=== PATIENT | male | born 1990 | race African-American/Black ===

== ENCOUNTER 2017-09-10 07:59 | Emergency (ER) | payer SELFPAY ==
[~2017-09-10] VITALS: Ht 180.3 cm; Wt 66.0 kg
[2017-09-10 08:00] VITALS: BP 125/67; PULSE 74; RESP 16; TEMP 98.6; O2SAT 100
[2017-09-10] MEDS ORDERED: SODIUM CHLORIDE 0.9% FLUSH 10 ML FLUSH IV FLUSH PRN (08:45)
[2017-09-10 08:56] LABS: AUTOMATED NEUTROPHIL # 6.3 TH/MM3 (1.8-7.7); BASOPHIL % 0.3 % (0.0-2.0); HEMATOCRIT 44.7 % (39.0-51.0); HEMO FLAGS DIFF FINAL; LYMPHOCYTE # 0.4 TH/MM3 (1.0-4.8); MEAN CELL VOLUME 84.5 FL (80.0-100.0); MEAN CORPUSCULAR HEMOGLOBIN 28.8 PG (27.0-34.0); MEAN CORPUSCULAR HGB CONC 34.1 % (32.0-36.0); NEUT % 87.7 % (16.0-70.0); PLATELET COUNT 185 TH/MM3 (150-450); RED BLOOD COUNT 5.29 MIL/MM3 (4.50-5.90); RED CELL DISTRIBUTION WIDTH 13.8 % (11.6-17.2); WHITE BLOOD COUNT 7.2 TH/MM3 (4.0-11.0)
[2017-09-10 08:59] LABS: BLOOD, URINE NEG (NEG); COMMENT (UR) CULT NOT INDICATED; CULTURE IF INDICATED CULT NOT INDICATED; GLUCOSE,URINE TRACE mg/dL (NEG); KETONE, URINE 10 mg/dL (NEG); MUCUS URINE FEW /lpf (OCC); NITRITE,URINE NEG (NEG); SQUAMOUS EPITHELIAL CELL URINE <1 /hpf (0-5); URINE COLOR YELLOW (YELLW/STRAW)
[2017-09-10] MEDS ORDERED: ONDANSETRON HCL 4 MG/2 ML VIAL IV PUSH ONE (09:00)
[2017-09-10] MEDS ORDERED: SODIUM CHLOR 0.9% 1000 ML INJ 1,000 ML IV ONE (09:00)
[2017-09-10] MEDS ORDERED: DICYCLOMINE HCL 10 MG CAP PO ONE (09:00)
[2017-09-10 09:24] LABS: ANION GAP 6 MEQ/L (5-15); AST (GOT) 26 U/L (15-37); BICARBONATE 24.3 MEQ/L (21.0-32.0); BLOOD UREA NITROGEN 10 MG/DL (7-18); CHLORIDE 104 MEQ/L (98-107); GLOMERULAR FILTRATION RATE 139 ML/MIN (>89); POTASSIUM 3.8 MEQ/L (3.5-5.1); SODIUM (NA) 134 MEQ/L (136-145)
[2017-09-10 09:28] LABS: ALKALINE PHOSPHATASE 57 U/L (45-117); ALT (GPT) 22 U/L (12-78); TOTAL BILIRUBIN ADULT 0.4 MG/DL (0.2-1.0)
[2017-09-10] MEDS ORDERED: NAPROXEN 500 MG TAB PO ONE (11:15)
[2017-09-10] MEDS ORDERED: DICY10 PO (11:30)
[2017-09-10] MEDS ORDERED: LOPE2CAP PO (11:30)
[2017-09-10] MEDS ORDERED: ZOFR4TAB3 SL (11:30)
--- NOTE | 2017-09-10 11:30 | PD ---
HPI Chief Complaint: GI Complaint Time Seen by Provider: 08:57 Travel History International Travel<30 days: No Contact w/Intl Traveler<30days: No Traveled to known affect area: No History of Present Illness HPI Is a 27-year-old man who presents to the emergency department complaining of lower abdominal discomfort. He reports that started yesterday. Service and nausea and vomiting progressed to low back pain and lower abdominal pain. He's had loose watery stools as well. He's been nauseous today without as much vomiting. He's had some subjective chills as well. No history of abdominal surgery. He otherwise has been feeling generally well. History Past Medical History Medical History: Denies Significant Hx Past Surgical History Surgical History: No Previous Surgery Social History Alcohol Use: No Tobacco Use: No Allergies-Medications (Allergen,Severity, Reaction): Coded Allergies: No Known Allergies (Unverified , 09/10/17) Reported Meds & Prescriptions Reported Meds & Active Scripts Active Loperamide (Loperamide HCl) 2 Mg Cap 2 Mg PO DIRECTED PRN One capsule after each loose stool. Not to exceed 8 capsules per day. Bentyl (Dicyclomine HCl) 10 Mg Cap 10 Mg PO TID PRN Zofran Odt (Ondansetron Odt) 4 Mg Tab 4 Mg SL Q6HR PRN Review of Systems Except as stated in HPI: all other systems reviewed are Neg Physical Exam Narrative GENERAL: Well-appearing urine 27-year-old man, no acute distress. SKIN: Focused skin assessment warm/dry. HEAD: Atraumatic. Normocephalic. EYES: Pupils equal and round. No scleral icterus. No injection or drainage. ENT: No nasal bleeding or discharge. Mucous membranes pink and moist. NECK: Trachea midline. No JVD. CARDIOVASCULAR: Regular rate and rhythm. No murmur appreciated. RESPIRATORY: No accessory muscle use. Clear to auscultation. Breath sounds equal bilaterally. GASTROINTESTINAL: Abdomen is flat and soft. Some mild lower abdominal tenderness bilaterally. No rebound or guarding. MUSCULOSKELETAL: No obvious deformities. No clubbing. No cyanosis. No edema. NEUROLOGICAL: Awake and alert. No obvious cranial nerve deficits. Motor grossly within normal limits. Normal speech. PSYCHIATRIC: Appropriate mood and affect; insight and judgment normal. Data Data Last Documented VS Vital Signs Date Time Temp Pulse Resp B/P (MAP) Pulse Ox O2 Delivery O2 Flow Rate FiO2 09/10/17 08:00 98.6 74 16 125/67 (86) 100 Room Air Orders Orders Complete Blood Count With Diff (09/10/17 08:42) Comprehensive Metabolic Panel (09/10/17 08:42) Lipase (09/10/17 08:42) Urinalysis - C+S If Indicated (09/10/17 08:42) Iv Access Insert/Monitor (09/10/17 08:42) Sodium Chloride 0.9% Flush (Ns Flush) (09/10/17 08:45) Ondansetron Inj (Zofran Inj) (09/10/17 09:00) Sodium Chlor 0.9% 1000 Ml Inj (Ns 1000 M (09/10/17 09:00) Dicyclomine (Bentyl) (09/10/17 09:00) Naproxen (Naprosyn) (09/10/17 11:15) Ed Discharge Order (09/10/17 11:30) Labs Laboratory Tests Test 09/10/17 08:30 09/10/17 08:35 Urine Color YELLOW Urine Turbidity CLEAR Urine pH 6.0 Urine Specific [place] 1.022 Urine Protein 30 mg/dL Urine Glucose (UA) TRACE mg/dL Urine Ketones 10 mg/dL Urine Occult Blood NEG Urine Nitrite NEG Urine Bilirubin NEG Urine Urobilinogen LESS THAN 2.0 MG/DL Urine Leukocyte Esterase NEG Urine RBC LESS THAN 1 /hpf Urine WBC 2 /hpf Urine Squamous Epithelial Cells <1 /hpf Urine Mucus FEW /lpf Microscopic Urinalysis Comment CULT NOT INDICATED White Blood Count 7.2 TH/MM3 Red Blood Count 5.29 MIL/MM3 Hemoglobin 15.2 GM/DL Hematocrit 44.7 % Mean Corpuscular Volume 84.5 FL Mean Corpuscular Hemoglobin 28.8 PG Mean Corpuscular Hemoglobin Concent 34.1 % Red Cell Distribution Width 13.8 % Platelet Count 185 TH/MM3 Mean Platelet Volume 8.0 FL Neutrophils (%) (Auto) 87.7 % Lymphocytes (%) (Auto) 6.0 % Monocytes (%) (Auto) 6.0 % Eosinophils (%) (Auto) 0.0 % Basophils (%) (Auto) 0.3 % Neutrophils # (Auto) 6.3 TH/MM3 Lymphocytes # (Auto) 0.4 TH/MM3 Monocytes # (Auto) 0.4 TH/MM3 Eosinophils # (Auto) 0.0 TH/MM3 Basophils # (Auto) 0.0 TH/MM3 CBC Comment DIFF FINAL Differential Comment Blood Urea Nitrogen 10 MG/DL Creatinine 0.81 MG/DL Random Glucose 110 MG/DL Total Protein 8.3 GM/DL Albumin 4.1 GM/DL Calcium Level 8.8 MG/DL Alkaline Phosphatase 57 U/L Aspartate Amino Transf (AST/SGOT) 26 U/L Alanine Aminotransferase (ALT/SGPT) 22 U/L Total Bilirubin 0.4 MG/DL Sodium Level 134 MEQ/L Potassium Level 3.8 MEQ/L Chloride Level 104 MEQ/L Carbon Dioxide Level 24.3 MEQ/L Anion Gap 6 MEQ/L Estimat Glomerular Filtration Rate 139 ML/MIN Lipase 82 U/L [facility] Medical Decision Making Medical Screen Exam Complete: Yes Emergency Medical Condition: Yes Interpretation(s) LABS: CBC is unremarkable. CMP is unremarkable. Lipase is normal. UA is unremarkable. Differential Diagnosis Gastroenteritis, colitis, UTI, appendicitis, other Narrative Course Medical decision making INITIAL calls a 27-year-old man who presents emergent from lower abdominal pain in the setting of nausea vomiting and diarrhea. He describes a lot of vomiting progressing to copious watery diarrhea strong suggestive of gastritis. He does have bilateral lower abdominal discomfort. Minimal tenderness. No other convincing evidence of appendicitis. This was discussed specific with the patient, he agrees to return for any worsening symptoms for further evaluation. Otherwise supportive treatment. Diagnosis Primary Impression: Nausea vomiting and diarrhea Additional Impression: Abdominal pain Additional Instructions: Take medications as prescribed. Return to the ER for any worsening pain, fevers, bloody diarrhea, or other symptoms. Follow up with your doctor if you are not well in 4-5 days. Med/Other Pt SpecificInfo: Prescription(s) given Scripts Loperamide (Loperamide) 2 Mg Cap 2 MG PO DIRECTED Y for DIARRHEA, #6 CAP 0 Refills One capsule after each loose stool. Not to exceed 8 capsules per day. Prov: Judd Frederick MD 09/10/17 Dicyclomine (Bentyl) 10 Mg Cap 10 MG PO TID Y for Bowel Management, #12 CAP 0 Refills Prov: Judd Frederick MD 09/10/17 Ondansetron Odt (Zofran Odt) 4 Mg Tab 4 MG SL Q6HR Y for Nausea/Vomiting, #12 TAB 0 Refills Prov: Judd Frederick MD 09/10/17 Disposition: 01 DISCHARGE HOME Condition: Stable Judd Frederick MD Sep 10, 2017 11:30
[2017-09-10 12:38] VITALS: BP 122/79
== END 2017-09-10 12:40 | disposition home or self-care (01) ==
LOC: NEPC 07:59
DX: R11.2 Nausea with vomiting, unspecified (principal); R19.7 Diarrhea, unspecified; R10.30 Lower abdominal pain, unspecified; Z79.899 Other long term (current) drug therapy
CPT/HCPCS: 80053; 81001; 83690; 85025; 96361; 96374; 99284; J2405; J7030

== ENCOUNTER 2017-09-12 19:21 | Emergency (ER) | payer SELFPAY ==
[~2017-09-12] VITALS: Ht 180.3 cm; Wt 65.0 kg
[~2017-09-12 19:21] MED LIST: DICY10 PO; LOPE2CAP PO; ZOFR4TAB3 SL
[2017-09-12 19:23] VITALS: BP 127/77; PULSE 65; RESP 16; TEMP 98.6; O2SAT 100
[2017-09-12 19:27] VITALS: BP 136/76; PULSE 82; RESP 16; TEMP 98.7; O2SAT 99
--- NOTE | 2017-09-12 20:57 | PD ---
HPI Chief Complaint: Abdominal Pain Time Seen by Provider: 20:56 Travel History International Travel<30 days: No Contact w/Intl Traveler<30days: No Traveled to known affect area: No History of Present Illness HPI 27-year-old male came to the emergency room with history of diarrhea and left- sided abdominal pain. Patient says this has been going on for past 5 days. Patient was here 3 days ago for the similar complain and was discharged home on Imodium. He had blood test done at that time. No history of vomiting. He is otherwise a healthy person. Vital signs are stable. Pain is nonradiating. It' s worse upon movement and eating. PFSH Past Medical History Narrative Medical List of her past medical, surgical, social and family history is reviewed from the nursing note. Medical History: Denies Significant Hx Diminished Hearing: No Past Surgical History Surgical History: No Previous Surgery Social History Alcohol Use: No Tobacco Use: No Substance Use: Yes (marijuana) Allergies-Medications (Allergen,Severity, Reaction): Coded Allergies: [place] And Derivatives (Verified Allergy, Mild, HIVES, 09/12/17) Comments List of her allergies reviewed from the nursing note. Reported Meds & Prescriptions Reported Meds & Active Scripts Active Flagyl (Metronidazole) 250 Mg Tab 250 Mg PO TID 7 Days Ciprofloxacin (Ciprofloxacin HCl) 500 Mg Tab 500 Mg PO BID 7 Days Loperamide (Loperamide HCl) 2 Mg Cap 2 Mg PO DIRECTED PRN One capsule after each loose stool. Not to exceed 8 capsules per day. Bentyl (Dicyclomine HCl) 10 Mg Cap 10 Mg PO TID PRN Zofran Odt (Ondansetron Odt) 4 Mg Tab 4 Mg SL Q6HR PRN Narrative Medication List of her home medications reviewed from the nursing note. Review of Systems Except as stated in HPI: all other systems reviewed are Neg Gastrointestinal: Positive: Diarrhea, Abdominal Pain Physical Exam Narrative GENERAL: Awake, alert, no obvious distress SKIN: Focused skin assessment warm/dry. HEAD: Atraumatic. Normocephalic. EYES: Pupils equal and round. No scleral icterus. No injection or drainage. ENT: No nasal bleeding or discharge. Mucous membranes pink and moist. NECK: Trachea midline. No JVD. CARDIOVASCULAR: Regular rate and rhythm. No murmur appreciated. RESPIRATORY: No accessory muscle use. Clear to auscultation. Breath sounds equal bilaterally. GASTROINTESTINAL: Abdomen soft, tender in the left lower quadrant, nondistended. Hepatic and splenic margins not palpable. MUSCULOSKELETAL: No obvious deformities. No clubbing. No cyanosis. No edema. NEUROLOGICAL: Awake and alert. No obvious cranial nerve deficits. Motor grossly within normal limits. Normal speech. PSYCHIATRIC: Appropriate mood and affect; insight and judgment normal. Data Data Last Documented VS Orders Orders Complete Blood Count With Diff (09/12/17 21:03) Comprehensive Metabolic Panel (09/12/17 21:03) Lipase (09/12/17 21:03) Urinalysis - C+S If Indicated (09/12/17 21:03) Ct Abd/Pel W Iv Contrast(Rout) (09/12/17 21:03) Iv Access Insert/Monitor (09/12/17 21:03) Ecg Monitoring (09/12/17 21:03) Oximetry (09/12/17 21:03) Sodium Chloride 0.9% Flush (Ns Flush) (09/12/17 21:15) Oral Contrast - Adult (09/12/17 21:24) Dicyclomine (Bentyl) (09/12/17 21:30) Diatrizoate Liq ( [place] Liq) (09/12/17 22:02) Sodium Chlor 0.9% 1000 Ml Inj (Ns 1000 M (09/12/17 23:00) Iohexol 350 Inj (Omnipaque 350 Inj) (09/12/17 23:27) Ciprofloxacin (Cipro) (09/12/17 23:45) Metronidazole (Flagyl) (09/12/17 23:45) Ed Discharge Order (09/12/17 23:40) Labs Laboratory Tests Test 09/12/17 21:15 09/12/17 22:00 White Blood Count 4.7 TH/MM3 Red Blood Count 5.31 MIL/MM3 Hemoglobin 15.2 GM/DL Hematocrit 45.3 % Mean Corpuscular Volume 85.2 FL Mean Corpuscular Hemoglobin 28.7 PG Mean Corpuscular Hemoglobin Concent 33.7 % Red Cell Distribution Width 14.0 % Platelet Count 207 TH/MM3 Mean Platelet Volume 8.0 FL Neutrophils (%) (Auto) 63.3 % Lymphocytes (%) (Auto) 17.1 % Monocytes (%) (Auto) 18.6 % Eosinophils (%) (Auto) 0.5 % Basophils (%) (Auto) 0.5 % Neutrophils # (Auto) 3.0 TH/MM3 Lymphocytes # (Auto) 0.8 TH/MM3 Monocytes # (Auto) 0.9 TH/MM3 Eosinophils # (Auto) 0.0 TH/MM3 Basophils # (Auto) 0.0 TH/MM3 CBC Comment DIFF FINAL Differential Comment Blood Urea Nitrogen 9 MG/DL Creatinine 0.89 MG/DL Random Glucose 104 MG/DL Total Protein 8.1 GM/DL Albumin 3.7 GM/DL Calcium Level 8.7 MG/DL Alkaline Phosphatase 54 U/L Aspartate Amino Transf (AST/SGOT) 28 U/L Alanine Aminotransferase (ALT/SGPT) 27 U/L Total Bilirubin 0.4 MG/DL Sodium Level 137 MEQ/L Potassium Level 4.0 MEQ/L Chloride Level 104 MEQ/L Carbon Dioxide Level 26.9 MEQ/L Anion Gap 6 MEQ/L Estimat Glomerular Filtration Rate 124 ML/MIN Lipase 82 U/L Urine Color YELLOW Urine Turbidity HAZY Urine pH 5.5 Urine Specific [place] 1.022 Urine Protein 30 mg/dL Urine Glucose (UA) TRACE mg/dL Urine Ketones 40 mg/dL Urine Occult Blood NEG Urine Nitrite NEG Urine Bilirubin NEG Urine Urobilinogen LESS THAN 2.0 MG/DL Urine Leukocyte Esterase NEG Urine RBC 1 /hpf Urine WBC 3 /hpf Urine Squamous Epithelial Cells 1 /hpf Urine Calcium Oxalate Crystals MOD /hpf Urine Mucus MANY /lpf Urine Sperm RARE Microscopic Urinalysis Comment CULT NOT INDICATED MDM Medical Decision Making Medical Screen Exam Complete: Yes Emergency Medical Condition: Yes Medical Record Reviewed: Yes Differential Diagnosis Acute colitis, acute diverticulitis, diarrhea Narrative Course 11:31 PM blood test results of back and within acceptable limits. UA shows ketones. Patient was given IV fluid bolus and by mouth Bentyl. At this point awaiting for CAT scan to be done and resulted. 11:[address] scan shows colitis. Patient will be given by mouth antibiotics and discharged home. Uncertain origin of the colitis. Procedures EKG Prior to Arrival: No Diagnosis Primary Impression: Colitis Additional Impressions: Abdominal pain Qualified Codes: R10.32 - Left lower quadrant pain Diarrhea Qualified Codes: R19.7 - Diarrhea, unspecified Referrals: Primary Care Physician Additional Instructions: Take the medications as per the prescription direction. Return to the ER if condition worsens or any other new concerns. You should be eating [place]ia diet that includes banana, rice, applesauce, tea and toast. Follow-up with your primary care. Do not take the nausea medication while you're taking the antibiotics. Med/Other Pt SpecificInfo: Prescription(s) given Scripts Metronidazole (Flagyl) 250 Mg Tab 250 MG PO TID for Infection for 7 Days, TAB 0 Refills Prov: Komal Lamb MD 09/12/17 Ciprofloxacin (Ciprofloxacin) 500 Mg Tab 500 MG PO BID for Infection for 7 Days, #14 TAB 0 Refills Prov: Komal Lamb MD 09/12/17 Disposition: 01 DISCHARGE HOME Condition: Stable Komal Lamb MD Sep 12, 2017 20:57
[2017-09-12] MEDS ORDERED: SODIUM CHLORIDE 0.9% FLUSH 10 ML FLUSH IV FLUSH PRN (21:15)
[2017-09-12] MEDS ORDERED: DICYCLOMINE HCL 10 MG CAP PO ONE (21:30)
[2017-09-12] MEDS ORDERED: DIATRIZOATE MEGLUM/DIATRIZOATE SOD 9 ML CUP ONE (22:02)
[2017-09-12 22:11] LABS: BASOPHIL % 0.5 % (0.0-2.0); EOSINOPHIL % 0.5 % (0.0-4.0); HEMATOCRIT 45.3 % (39.0-51.0); HEMO FLAGS DIFF FINAL; LYMPH % 17.1 % (9.0-44.0); LYMPHOCYTE # 0.8 TH/MM3 (1.0-4.8); MEAN CELL VOLUME 85.2 FL (80.0-100.0); MEAN CORPUSCULAR HEMOGLOBIN 28.7 PG (27.0-34.0); MEAN CORPUSCULAR HGB CONC 33.7 % (32.0-36.0); MONO % 18.6 % (0.0-8.0); NEUT % 63.3 % (16.0-70.0); PLATELET COUNT 207 TH/MM3 (150-450); RED BLOOD COUNT 5.31 MIL/MM3 (4.50-5.90); WHITE BLOOD COUNT 4.7 TH/MM3 (4.0-11.0)
[2017-09-12 22:36] LABS: ALT (GPT) 27 U/L (12-78)
[2017-09-12 22:38] LABS: ALKALINE PHOSPHATASE 54 U/L (45-117); TOTAL BILIRUBIN ADULT 0.4 MG/DL (0.2-1.0)
[2017-09-12 22:42] LABS: ANION GAP 6 MEQ/L (5-15); AST (GOT) 28 U/L (15-37); BICARBONATE 26.9 MEQ/L (21.0-32.0); BLOOD UREA NITROGEN 9 MG/DL (7-18); CHLORIDE 104 MEQ/L (98-107); GLOMERULAR FILTRATION RATE 124 ML/MIN (>89); SODIUM (NA) 137 MEQ/L (136-145)
[2017-09-12 22:46] LABS: BLOOD, URINE NEG (NEG); CALCIUM OXALATE CRYSTALS,URINE MOD /hpf; COMMENT (UR) CULT NOT INDICATED; CULTURE IF INDICATED CULT NOT INDICATED; GLUCOSE,URINE TRACE mg/dL (NEG); KETONE, URINE 40 mg/dL (NEG); MUCUS URINE MANY /lpf (OCC); NITRITE,URINE NEG (NEG); PH, URINE 5.5 (5.0-8.5); SQUAMOUS EPITHELIAL CELL URINE 1 /hpf (0-5); URINE COLOR YELLOW (YELLW/STRAW)
[2017-09-12] MEDS ORDERED: SODIUM CHLOR 0.9% 1000 ML INJ 1,000 ML IV ONE (23:00)
[2017-09-12] MEDS ORDERED: IOHEXOL 350 MG/ML 10 ML VIAL (for RAD DIAG) IVCONTRAST ONE (23:27)
--- NOTE | 2017-09-12 23:37 | RADRPT ---
EXAM DATE/TIME: 09/12/2017 23:23 [place] COMPARISON: No previous studies available for comparison. INDICATIONS : Left sided abdominal pain with diarrhea. IV CONTRAST: 100 cc Omnipaque 350 (iohexol) IV ORAL CONTRAST: Prescribed oral contrast ingested. RADIATION DOSE: 4.78 CTDIvol (mGy) MEDICAL HISTORY : None SURGICAL HISTORY : None. ENCOUNTER: Initial ACUITY: 4 - 6 days PAIN SCALE: 8/10 LOCATION: Left abdomen TECHNIQUE: Volumetric scanning of the abdomen and pelvis was performed. Using automated exposure control and ad justment of the mA and/or kV according to patient size, radiation dose was kept as low as reasonably achievable to obtain optimal diagnostic quality images. DICOM format image data is available electro nically for review and comparison. FINDINGS: Lung bases are clear. Osseous structures are intact. There no pleural or pericardial effusions. Liver , gallbladder, kidneys, spleen, pancreas, adrenal glands are unremarkable. There is abnormal circumfe rential bowel wall thickening involving the large bowel from the descending colon from the ascending colon. This is characteristic of a colitis. The appendix is felt to be normal. No adenopathy, or obst ruction. No free fluid or free air. CONCLUSION: 1. Colitis. Heriberto Hogan MD on September 12, 2017 at 23:33 Board Certified Radiologist. This report was verified electronically.
[2017-09-12] MEDS ORDERED: CIPR500T2 PO (23:43)
[2017-09-12] MEDS ORDERED: METR250 PO (23:43)
[2017-09-12] MEDS ORDERED: CIPROFLOXACIN 500 MG TAB PO ONE (23:45)
[2017-09-12] MEDS ORDERED: metroNIDAZOLE 500 MG TAB PO ONE (23:45)
[2017-09-13 00:23] VITALS: BP 140/76
== END 2017-09-13 00:23 | disposition home or self-care (01) ==
LOC: NEPC 19:21
DX: K52.9 Noninfective gastroenteritis and colitis, unspecified (principal); R10.32 Left lower quadrant pain
CPT/HCPCS: 74177; 80053; 81001; 83690; 85025; 96360; 99285; J7030; Q9963; Q9967